=== PATIENT | female | born 1965 | race Caucasian/White ===

== ENCOUNTER 2017-12-25 14:19 | Emergency (ER) | payer OTHER, MEDICARE ==
[~2017-12-25] VITALS: Ht 165.1 cm; Wt 81.7 kg
[~2017-12-25 14:19] MED LIST: ADDERALL 5 MG TA5 MG PO; AMBIEN 5 MG TABL5 M1 PO; AMPHETAMINE SAL10 MG PO; BACTRIM DS TAB1 EACH PO; BENADRYL25 MG PO; COLACE100 MG PO; CYMBALTA20 MG PO; DARVOCET-N 1001 EACH PO; FLEXERIL PO; LORTAB 5 MG/5001 TA1 PO; MELATONIN3 MG PO; MELATONIN5 M4 PO; MILK OF MA2400 MG/10 PO; NAPROSYN500 MG PO; NEURONTIN 300300 M1 PO; NEURONTIN600 MG PO; NORCO 5-325 TA1 EACH PO; PERCOCET 10-321 EACH PO; PROTONIX40 M1 PO; PROTONIX40 MG PO; XARELTO10 M1 PO; ZOCOR40 MG PO; ZOFRAN ODT4 MG PO
[2017-12-25] MEDS ORDERED: PROTONIX 20 MG20 M1 PO (14:34)
[2017-12-25] MEDS ORDERED: XYREM500 MG/1 M PO (14:34)
[2017-12-25 15:02] LABS: URINE BILIRUBIN NEGATIVE (Negative); URINE BLOOD TRACE (Negative); URINE CLARITY CLEAR; URINE COLOR YELLOW; URINE GLUCOSE-RANDOM NEGATIVE (Negative); URINE KETONES NEGATIVE (Negative); URINE NITRITE-REFLEX NEGATIVE (Negative); URINE PROTEIN NEGATIVE (Negative)
[2017-12-25 15:03] LABS: URINE LEUKOCYTES-REFLEX 2+ (Negative)
[2017-12-25 15:10] LABS: ABSOLUTE BASOPHILS 0.1 thou/uL (0.0-0.2); ABSOLUTE EOSINOPHILS 0.1 thou/uL (0.0-0.7); ABSOLUTE LYMPHOCYTES 1.5 thou/uL (0.8-5.3); ABSOLUTE NEUTROPHILS 11.6 thou/uL (1.6-8.1); BASOPHILS 0.5 %; EOSINOPHILS 0.6 %; HEMATOCRIT 44.1 % (37.0-47.0); HEMOGLOBIN 14.8 gm/dL (12.0-15.0); LYMPHOCYTES 10.8 %; MCH 28.7 pg (26.0-34.0); MCHC 33.4 g/dL (28.0-37.0); MCV 85.8 fL (80.0-100.0); MONOCYTES 7.1 %; MPV 8.3 fl. (7.2-11.1); NUCLEATED RBCS 0 /100WBC; PLATELET COUNT* 269 thou/uL (150-400); RBC 5.14 mil/uL (4.20-5.00); RDW-CV 13.8 % (10.5-14.5); WBC 14.4 thou/uL (4.0-11.0)
[2017-12-25 15:22] LABS: CALCIUM 8.9 mg/dL (8.5-10.1); CREATININE 0.9 mg/dL (0.6-1.3); POTASSIUM 3.6 mmol/L (3.5-5.1)
[2017-12-25 15:27] LABS: ALBUMIN 3.6 g/dL (3.4-5.0); TOTAL BILIRUBIN 1.1 mg/dL (<0.1-1.0); TOTAL PROTEIN 7.7 g/dL (6.4-8.2)
[2017-12-25 15:47] LABS: SQUAMOUS >10 Many /LPF (0-3)
[2017-12-25 15:48] LABS: MUCUS 4-6 Moderate strn/LPF (None Seen); URINE WBC-REFLEX >25 Many /HPF (0-5)
[2017-12-25 15:50] LABS: CASTS None Seen /LPF (None Seen); CRYSTALS None Seen /LPF (None Seen); URINE RBC 0-2 Rare /HPF (0-2)
[2017-12-25] MEDS ORDERED: FLAGYL500 MG PO (16:28)
[2017-12-25] MEDS ORDERED: CIPRO500 MG PO (16:28)
[2017-12-25] MEDS ORDERED: TORADOL 10 MG T10 MG PO (16:34)
[2017-12-25 16:50] VITALS: BP 112/72
== END 2017-12-25 16:51 | disposition home or self-care (01) ==
LOC: M.ERS 14:19
PROVIDERS: Nurse Practitioner Family
DX: K57.92 Diverticulitis of intestine, part unspecified, without perforation or abscess without bleeding (principal); Z90.49 Acquired absence of other specified parts of digestive tract

== ENCOUNTER → 2018-07-20 | Outpatient (CLI) | payer OTHER ==
[~2018-07-20] MED LIST changes: +CIPRO500 MG PO; +FLAGYL500 MG PO; +PROTONIX 20 MG20 M1 PO; +TORADOL 10 MG T10 MG PO; +XYREM500 MG/1 M PO
== END ==
LOC: M.CT 07-12 10:45
DX: Z13.6 Encounter for screening for cardiovascular disorders (principal)

== ENCOUNTER → 2018-07-20 | Outpatient (CLI) | payer OTHER, MEDICARE ==
--- NOTE | 2018-07-20 15:32 | EXE ---
[place] [address] STRESS ECHOCARDIOGRAM Name: FRANCIE GILL Room: [facility]#: [id number] Admission: 07/20/18 Attend Phys: Kevin Mena, Discharge: Date of : 69 Date of Service: 07/20/18 1532 Report #: [id number] THIS REPORT FOR: //name// APPROVED REPORT Study performed: 07/20/2018 13:41:25 Exam: Stress Echocardiogram Indication: Chest pain Patient Location: Out-Patient Stress Nurse: Shiar Briggs RN Supervising Physician: Alex Whitney MD Ht: 5 ft 5 in HR: 86 bpm BP: 144/95 mmHg Procedure The patient underwent an Exercise Stress Test using the Abe Protocol. Blood pressure, heart rate, and EKG were monitored. An Echocardiogram was performed by nanotechnology engineering technician in four stages in quad fashion. At peak stress, four selected images were obtained and placed side by side with resting images for comparison. Stress Test Details Stress Test: Exercise stress testing was performed using a Abe protocol. HR Resting HR: 86 bpm Max Heart Rate (APMHR): 170 bpm Max HR Achieved: 152 bpm Target HR (85% APMHR): 144 bpm % of APMHR: 89 Recovery HR: 92 bpm HR response to stress: Normal HR response to stress BP Resting BP: 144/95 mmHg Max BP: 214/96 mmHg Recovery BP: 161/87 mmHg BP response to stress: Normal blood pressure response to stress. ECG Resting ECG: Sinus Rhythm, nonspecific ST-T abnormalities Stress ECG: Sinus Rhythm, nonspecific ST-T abnormalities ST Change: Upsloping ST depression Maximum ST Deviation: 1 [place] [address] STRESS ECHOCARDIOGRAM Name: FRANCIE GILL Room: [facility]#: [id number] Admission: 07/20/18 Attend Phys: Kevin Mena, Discharge: Date of : 69 Date of Service: 07/20/18 1532 Report #: [id number] Arrhythmia: VPC's Recovery ECG: Sinus Rhythm, nonspecific ST-T abnormalities Recovery ST Change: Upsloping ST depression Recovery ST Deviation: 0.5 mm Recovery Arrhythmia: VPC Clinical Reason for Termination: Maximal effort Exercise duration: 6 min 20 sec Highest Stage Achieved: Stage 3: 3.4 mph at 14% grade. Exercise capacity: 7.49 METs Pre-Stress Echo The resting Echocardiogram showed normal left ventricular contractility with an estimated Ejection Fraction of about 55-60%. Post-Stress Echo The stress Echocardiogram showed normal left ventricular contractility with an estimated Ejection Fraction of about 65-70%. Conclusion Clinical Response: Non-ischemic Exercise Capacity: Average Stress ECG Response: Indeterminant Stress Echo Images: Non-ischemic low risk stress echo for future cardiac events Other Information Study Quality: Technically Limited <Conclusion> low risk stress echo for future cardiac events <ELECTRONICALLY SIGNED> By: Alex Whitney MD, FACC 07/20/18 153 31 31 Alex Whitney MD, FACC /INF
== END ==
LOC: M.CRD 07-12 11:00
DX: R07.9 Chest pain, unspecified (principal)

== ENCOUNTER → 2019-02-26 | Outpatient (CLI) | payer OTHER, MEDICARE | LOC: M.CT 14:46 | DX: K76.0 Fatty (change of) liver, not elsewhere classified (principal); K57.30 Diverticulosis of large intestine without perforation or abscess without bleeding; E78.00 Pure hypercholesterolemia, unspecified; J98.11 Atelectasis; N20.0 Calculus of kidney; M48.061 Spinal stenosis, lumbar region without neurogenic claudication; M47.816 Spondylosis without myelopathy or radiculopathy, lumbar region; Z90.49 Acquired absence of other specified parts of digestive tract; Z88.8 Allergy status to other drugs, medicaments and biological substances ==

== ENCOUNTER 2020-10-28 19:48 | Inpatient (IN) | payer OTHER, MEDICARE ==
[~2020-10-28] VITALS: Ht 165.1 cm; Wt 88.5 kg
[2020-10-28 20:03] VITALS: BP 139/91
[2020-10-28 20:41] LABS: ABSOLUTE BASOPHILS 0.1 thou/uL (0.0-0.2); ABSOLUTE EOSINOPHILS 0.1 thou/uL (0.0-0.7); ABSOLUTE LYMPHOCYTES 2.9 thou/uL (0.8-5.3); ABSOLUTE MONOCYTES 0.6 thou/uL (0.0-1.2); ABSOLUTE NEUTROPHILS 4.9 thou/uL (1.6-8.1); BASOPHILS 0.8 %; EOSINOPHILS 1.3 %; HEMATOCRIT 39.7 % (37.0-47.0); HEMOGLOBIN 13.3 gm/dL (12.0-15.0); LYMPHOCYTES 34.3 %; MCH 28.8 pg (26.0-34.0); MCHC 33.5 g/dL (28.0-37.0); MCV 85.9 fL (80.0-100.0); MONOCYTES 6.7 %; MPV 8.1 fl. (7.2-11.1); NUCLEATED RBCS 0 /100WBC; PLATELET COUNT* 256 thou/uL (150-400); POLYS 56.9 %; RBC 4.62 mil/uL (4.20-5.00); RDW-CV 14.6 % (10.5-14.5); WBC 8.6 thou/uL (4.0-11.0)
[2020-10-28 20:49] LABS: CALCIUM 8.9 mg/dL (8.5-10.1); CREATININE 0.7 mg/dL (0.6-1.3); POTASSIUM 3.7 mmol/L (3.5-5.1)
[2020-10-28 20:53] LABS: ALBUMIN 3.6 g/dL (3.4-5.0); TOTAL BILIRUBIN 0.4 mg/dL (<0.1-1.0); TOTAL PROTEIN 7.5 g/dL (6.4-8.2)
[2020-10-28 21:16] LABS: URINE BILIRUBIN NEGATIVE (Negative); URINE BLOOD NEGATIVE (Negative); URINE CLARITY CLEAR; URINE COLOR YELLOW; URINE GLUCOSE-RANDOM NEGATIVE (Negative); URINE KETONES NEGATIVE (Negative); URINE LEUKOCYTES-REFLEX NEGATIVE (Negative); URINE NITRITE-REFLEX NEGATIVE (Negative); URINE PROTEIN NEGATIVE (Negative); URINE UROBILINOGEN 0.2 E.U./dl (0.2-1.0)
[2020-10-28 23:12] VITALS: BP 119/71
[2020-10-28 23:35] VITALS: BP 114/57
[2020-10-29 05:02] VITALS: BP 94/58
[2020-10-29 07:59] VITALS: BP 93/46
[2020-10-29 08:32] LABS: CALCIUM 8.2 mg/dL (8.5-10.1); CREATININE 0.6 mg/dL (0.6-1.3); POTASSIUM 3.8 mmol/L (3.5-5.1)
[2020-10-29 08:35] LABS: MAGNESIUM 1.9 mg/dL (1.8-2.4); PHOSPHORUS* 3.3 mg/dL (2.5-4.9)
--- NOTE | 2020-10-29 09:31 | EKG ---
[place] [address] ELECTROCARDIOGRAM REPORT Name: FRANCIE GILL Room: [address] ADM IN .R.#: [id number] Admission: 10/28/20 Attend Phys: Benson Padilla Discharge: Date of : 69 Date of Service: 10/28/202052 Report #: [id number] THIS REPORT FOR: //name// [facility] ED Test Date: 2020-10-28 Test Time: 20:53:15 Pat Name: FRANCIE GILL Department: Room: [facility] Gender: F Arc Welder: CODY : 1965 Requested By: Betsy Decker Order Number: [id number] MD: Tushar Jones Measurements Intervals [place] Rate: 74 P: 13 MI: 148 QRS: 14 QRSD: 88 T: 12 QT: 389 QTc: 432 Interpretive Statements Sinus rhythm Low voltage, precordial leads Compared to ECG 11/19/2010 09:30:28 Low QRS voltage now present Electronically Signed On 10-29-2020 9:30:57 CDT by Tushar Jones [email or web address] <ELECTRONICALLY SIGNED> By: Arron Jones MD, [facility] 10/29/20929 52 52 Arron Jones MD, [facility] /EPI
[2020-10-29 16:02] VITALS: BP 99/51
[2020-10-29 20:00] VITALS: BP 116/70
[2020-10-30] VITALS: BP 149/60
[2020-10-30 04:00] VITALS: BP 100/44
[2020-10-30 04:19] LABS: ABSOLUTE EOSINOPHILS 0.1 thou/uL (0.0-0.7); ABSOLUTE LYMPHOCYTES 2.4 thou/uL (0.8-5.3); ABSOLUTE MONOCYTES 0.4 thou/uL (0.0-1.2); ABSOLUTE NEUTROPHILS 2.2 thou/uL (1.6-8.1); BASOPHILS 0.8 %; EOSINOPHILS 2.1 %; HEMATOCRIT 34.6 % (37.0-47.0); LYMPHOCYTES 46.3 %; MCH 28.4 pg (26.0-34.0); MCHC 32.8 g/dL (28.0-37.0); MCV 86.6 fL (80.0-100.0); MPV 8.4 fl. (7.2-11.1); NUCLEATED RBCS 0 /100WBC; PLATELET COUNT* 217 thou/uL (150-400); POLYS 42.8 %; RBC 3.99 mil/uL (4.20-5.00); RDW-CV 14.8 % (10.5-14.5); WBC 5.1 thou/uL (4.0-11.0)
[2020-10-30 04:46] LABS: ALBUMIN 2.7 g/dL (3.4-5.0); CALCIUM 8.4 mg/dL (8.5-10.1); CREATININE 0.5 mg/dL (0.6-1.3); POTASSIUM 3.4 mmol/L (3.5-5.1); TOTAL BILIRUBIN 0.4 mg/dL (<0.1-1.0); TOTAL PROTEIN 6.1 g/dL (6.4-8.2)
[2020-10-30 04:57] LABS: HEMOGLOBIN 11.3 gm/dL (12.0-15.0)
[2020-10-30 05:25] LABS: ESR (SEDRATE) 18 mm/hr (0-30)
[2020-10-30 07:52] VITALS: BP 102/45
[2020-10-30 16:00] VITALS: BP 132/61
[2020-10-30 20:00] VITALS: BP 121/71
[2020-10-30 23:58] VITALS: BP 100/60; BP 97/50
[2020-10-31 04:33] LABS: HEMATOCRIT 37.9 % (37.0-47.0); HEMOGLOBIN 12.4 gm/dL (12.0-15.0); MCH 28.5 pg (26.0-34.0); MCHC 32.7 g/dL (28.0-37.0); MCV 87.2 fL (80.0-100.0); MPV 8.4 fl. (7.2-11.1); RBC 4.34 mil/uL (4.20-5.00); RDW-CV 14.5 % (10.5-14.5); WBC 5.6 thou/uL (4.0-11.0)
[2020-10-31 05:00] LABS: CALCIUM 8.7 mg/dL (8.5-10.1); CREATININE 0.7 mg/dL (0.6-1.3); MAGNESIUM 1.8 mg/dL (1.8-2.4); POTASSIUM 3.4 mmol/L (3.5-5.1)
[2020-10-31 07:30] VITALS: BP 135/76
[2020-10-31] MEDS ORDERED: CIPRO500 M1 PO (10:49)
[2020-10-31] MEDS ORDERED: FLAGYL500 M1 PO (10:49)
[2020-10-31] MEDS ORDERED: HYDROCODON-ACE1 EAC7 PO (10:49)
[2020-10-31 11:40] VITALS: BP 135/76
== END 2020-10-31 15:01 | disposition home or self-care (01) | DRG 392 ==
LOC: M.ERS 19:48 → M.TBA-ER 22:10 → M.2W 22:10
PROVIDERS: Internal Medicine; Internal Medicine Gastroenterology; Nurse Practitioner Family; ADMIT Internal Medicine; ATTEND Internal Medicine
DX: K57.32 Diverticulitis of large intestine without perforation or abscess without bleeding (principal); E44.0 Moderate protein-calorie malnutrition; K59.00 Constipation, unspecified; I95.2 Hypotension due to drugs; Z20.822 Contact with and (suspected) exposure to COVID-19; Z90.49 Acquired absence of other specified parts of digestive tract; Z79.899 Other long term (current) drug therapy; Z87.891 Personal history of nicotine dependence; Z68.32 Body mass index [BMI] 32.0-32.9, adult

== ENCOUNTER 2020-12-06 21:54 | Emergency (ER) | payer OTHER, MEDICARE ==
[~2020-12-06] VITALS: Ht 165.1 cm; Wt 84.8 kg
[~2020-12-06 21:54] MED LIST changes: +CIPRO500 M1 PO; +FLAGYL500 M1 PO; +HYDROCODON-ACE1 EAC7 PO
[2020-12-06 22:09] LABS: URINE BILIRUBIN NEGATIVE (Negative); URINE BLOOD NEGATIVE (Negative); URINE CLARITY CLEAR; URINE COLOR YELLOW; URINE GLUCOSE-RANDOM NEGATIVE (Negative); URINE KETONES NEGATIVE (Negative); URINE LEUKOCYTES-REFLEX NEGATIVE (Negative); URINE NITRITE-REFLEX NEGATIVE (Negative); URINE PROTEIN 1+ (Negative); URINE UROBILINOGEN 0.2 E.U./dl (0.2-1.0)
[2020-12-06 22:34] LABS: ABSOLUTE BASOPHILS 0.1 thou/uL (0.0-0.2); ABSOLUTE LYMPHOCYTES 1.8 thou/uL (0.8-5.3); ABSOLUTE NEUTROPHILS 11.2 thou/uL (1.6-8.1); BASOPHILS 0.7 %; EOSINOPHILS 0.3 %; HEMATOCRIT 41.4 % (37.0-47.0); HEMOGLOBIN 13.9 gm/dL (12.0-15.0); LYMPHOCYTES 12.9 %; MCH 29.2 pg (26.0-34.0); MCHC 33.5 g/dL (28.0-37.0); MCV 87.2 fL (80.0-100.0); MPV 7.9 fl. (7.2-11.1); NUCLEATED RBCS 0 /100WBC; PLATELET COUNT* 283 thou/uL (150-400); POLYS 79.1 %; RBC 4.75 mil/uL (4.20-5.00); RDW-CV 14.9 % (10.5-14.5); WBC 14.2 thou/uL (4.0-11.0)
[2020-12-06 22:44] LABS: CALCIUM 9.4 mg/dL (8.5-10.1); CREATININE 0.6 mg/dL (0.6-1.3); POTASSIUM 3.6 mmol/L (3.5-5.1)
[2020-12-06 22:53] LABS: MAGNESIUM 1.8 mg/dL (1.8-2.4); TOTAL BILIRUBIN 0.7 mg/dL (<0.1-1.0); TOTAL PROTEIN 8.1 g/dL (6.4-8.2)
[2020-12-07] MEDS ORDERED: HYDROCODON-ACE1 EAC8 PO (00:06)
[2020-12-07] MEDS ORDERED: FLAGYL500 M1 PO (00:06)
[2020-12-07] MEDS ORDERED: CIPROFLOXACIN500 M1 PO (00:06)
[2020-12-07] MEDS ORDERED: ZOFRAN ODT4 MG PO (00:06)
[2020-12-07 02:52] VITALS: BP 128/74
--- NOTE | 2020-12-08 10:25 | EKG ---
[place] [address] ELECTROCARDIOGRAM REPORT Name: FRANCIE GILL Room: [facility]#: [id number] Admission: 12/06/20 Attend Phys: Discharge: 12/07/20 Date of : 69 Date of Service: 12/06/202205 Report #: [id number] THIS REPORT FOR: //name// [facility] ED Test Date: 2020-12-06 Test Time: 22:06:22 Pat Name: FRANCIE GILL Department: Room: Gender: F Business Systems Lead: ELVIS : 1965 Requested By: Sofiya Knowles Order Number: [id number] Igor MD: Alex Whitney Measurements Intervals [place] Rate: 96 P: 47 IN: 154 QRS: 30 QRSD: 86 T: 16 QT: 332 QTc: 420 Interpretive Statements Sinus rhythm Compared to ECG 10/28/2020 20:53:15 No significant changes Electronically Signed On 12-08-2020 10:25:26 CDT by Alex Whitney [email or web address] <ELECTRONICALLY SIGNED> By: Alex Whitney MD, [facility] 12/08/20 1025 05 05 Alex Whitney MD, [facility] /EPI
== END 2020-12-07 02:57 | disposition home or self-care (01) ==
LOC: M.ERS 21:54
PROVIDERS: Emergency Medicine
DX: K57.32 Diverticulitis of large intestine without perforation or abscess without bleeding (principal); M79.7 Fibromyalgia; Z90.49 Acquired absence of other specified parts of digestive tract; Z86.14 Personal history of Methicillin resistant Staphylococcus aureus infection